=== PATIENT | male | born 1950 | race Caucasian/White ===

== ENCOUNTER 2018-02-11 13:13 | Emergency (ER) | payer MEDICARE, OTHER ==
[2018-02-11 14:43] LABS: #Eosinphils 0.1 thou/uL (0.0-0.7); #Lymphocytes 0.7 thou/uL (1.20-3.40); #Monocytes 0.4 thou/uL (0.11-0.59); %Basophils 0.2 % (0.0-1.0); %Eosinophils 1.2 % (0.0-10.0); %Lymphocytes 11.5 % (21.0-51.0); %Neutrophils 80.1 % (42.0-75.0); Hemoglobin 15.8 g/dL (14.0-18.0); Mean Corpuscular HGB CONC 34.3 g/dL (32.0-36.0); Mean Corpuscular Hemoglobin 29.6 pg (27.0-31.0); Mean Corpuscular Volume 86.2 fL (78.0-98.0); Mean Platelet Volume 7.3 fL (7.4-10.4); Platelet Count 92 thou/uL (130-400); RBC Distribution Width 12.2 % (11.5-14.5); Red Blood Cell (RBC) Count 5.35 mill/uL (4.70-6.10); White Blood Cell (WBC) Count 6.2 thou/uL (4.8-10.8)
[2018-02-11 15:03] LABS: ALT (SGPT) 34 U/L (8-55); AST (SGOT) 29 U/L (5-34); Albumin 4.2 g/dL (3.4-4.8); Alkaline Phosphatase 59 U/L (40-150); Anion Gap 15 mmol/L (10-20); BUN (Urea Nitrogen) 9 mg/dL (8.4-25.7); Bilirubin, Total 1.2 mg/dL (0.2-1.2); Calc. Creatinine Clearance 0 mL/min (70-130); Calcium 9.4 mg/dL (7.8-10.44); Carbon Dioxide 24 mmol/L (23-31); Chloride 102 mmol/L (98-107); Estimated GFR-MDRD Greater than 90; Globulin 4.1 g/dL (2.4-3.5); Glucose 201 mg/dL (80-115); Potassium 3.5 mmol/L (3.5-5.1); Protein, Total 8.3 g/dL (5.8-8.1); Sodium 137 mmol/L (136-145)
--- NOTE | 2018-02-11 15:20 | RAD ---
CHEST ONE VIEW: HISTORY: Headaches. Nausea. Vomiting. Chest pain. FINDINGS: Normal cardiac silhouette. The pulmonary vessels and hilum are normal. The costophrenic angles are clear. No consolidation or mass. Chronic changes in the right ribs. No pneumothorax or osseous abn ormalities. IMPRESSION: No acute cardiopulmonary process. POS: [facility]
[2018-02-11] MEDS ORDERED: hydrALAZINE 20 MG/ML VIAL ONE (15:47)
--- NOTE | 2018-02-11 15:51 | CT ---
CT BRAIN NONCONTRAST: 02/11/2018 HISTORY: A 68-year-old male with nausea and emesis with headache. Hypertension. FINDINGS: There is no midline shift or any other mass effect. There is no evidence of acute intracranial hemor rhage, obstructive hydrocephalus, or extraaxial fluid collection. The calvarium is intact. There is diffuse parenchymal volume loss. There are low attenuation areas in the white matter. These are no nspecific, but in a patient of this age, they are probably chronic ischemic white matter changes due to microvascular atherosclerosis. These changes have become much worse, compared to the previous CT of 10/06/2004. There is a moderate-sized region of left temporal encephalomalacia and gliosis, which is new, having occurred some time after the previous CT of 10/06/2004. Again noted is the small, ol d lacunar infarction in the left thalamus. There are additional tiny, old lacunar infarctions in the right basal ganglia and external capsule, new since 10/06/2004. The ventricles are mildly dilated, larger than they were previously, because of diffuse brain parenchymal volume loss that has occurred since then. IMPRESSION: 1) No acute intracranial findings. 2) Involutional changes and moderate-severe chronic ischemic white matter changes. 3) Moderate-sized old insult, either prior hemorrhage/trauma or prior infarction, in the left tempora l lobe. 4) Small/tiny old lacunar infarctions in the left thalamus and right basal ganglia. jn [] POS: [facility]
[2018-02-11] MEDS ORDERED: Metoclopramide HCl 10 MG/2 ML VIAL ONE (16:04)
[2018-02-11] MEDS ORDERED: Ketorolac Tromethamine 30 MG/ML VIAL ONE (16:04)
[2018-02-11] MEDS ORDERED: diphenhydrAMINE 50 MG/ML VIAL ONE (16:04)
== END 2018-02-11 17:15 | disposition home or self-care (01) ==
LOC: ERS 13:13
DX: R51 Headache (principal); I10 Essential (primary) hypertension; E11.9 Type 2 diabetes mellitus without complications; Z79.899 Other long term (current) drug therapy; Z79.84 Long term (current) use of oral hypoglycemic drugs
CPT/HCPCS: 70450; 71045; 80053; 83880; 84484; 85025; 93005; 96374; 96375; J0360; J1200; J1885; J2765

== ENCOUNTER 2018-05-27 07:43 | Outpatient (CLI) | payer MEDICARE ==
--- NOTE | 2018-05-27 09:27 | ULT ---
ULTRASOUND ABDOMEN: HISTORY: Thrombocytopenia. FINDINGS: The liver demonstrates increased echogenicity with focal sparing adjacent to the gallbladder. No mas s or intrahepatic ductal dilatation is seen. The spleen is mildly enlarged, measuring 14.2 cm in chantell gth. No gallstones, gallbladder wall thickening, or pericholecystic fluid is seen. The common duct measures 3 mm in diameter. The pancreas is not satisfactorily visualized due to overlying bowel gas. The visualized portions of the aorta and IVC are normal. Both kidneys have a normal appearance. No free fluid is seen in the abdomen. IMPRESSION: 1. Fatty liver. 2. Mild splenomegaly. 3. No evidence of cholelithiasis. POS: [facility]
== END 2018-05-27 07:44 | disposition home or self-care (01) ==
LOC: BICULT 07:43
PROVIDERS: ATTEND Family Medicine
DX: D69.6 Thrombocytopenia, unspecified (principal); K76.0 Fatty (change of) liver, not elsewhere classified; R16.1 Splenomegaly, not elsewhere classified
CPT/HCPCS: 76700

== ENCOUNTER 2018-08-08 10:41 | Emergency (ER) | payer MEDICARE ==
[2018-08-08 11:27] LABS: INR-International Normal Ratio 1.1; Prothrombin Time 14.5 SEC (12.0-14.7)
[2018-08-08 11:28] LABS: PTT 33.6 SEC (22.9-36.1)
[2018-08-08 11:33] LABS: Acetaminophen Less than 6.0 mcg/mL (10.0-30.0); Alcohol Less than 10 mg/dL (Less than 10); Salicylate Less than 8.0 mg/dL (15.0-30.0)
[2018-08-08 11:35] LABS: ALT (SGPT) 27 U/L (8-55); AST (SGOT) 27 U/L (5-34); Alkaline Phosphatase 59 U/L (40-150); Anion Gap 12 mmol/L (10-20); BUN (Urea Nitrogen) 12 mg/dL (8.4-25.7); Bilirubin, Total 0.7 mg/dL (0.2-1.2); Calc. Creatinine Clearance 0 mL/min (70-130); Calcium 9.8 mg/dL (7.8-10.44); Carbon Dioxide 25 mmol/L (23-31); Chloride 104 mmol/L (98-107); Estimated GFR-MDRD Greater than 90; Globulin 3.6 g/dL (2.4-3.5); Glucose 252 mg/dL (80-115); Protein, Total 7.6 g/dL (5.8-8.1); Sodium 137 mmol/L (136-145)
[2018-08-08 11:38] LABS: #Eosinphils 0.1 thou/uL (0.0-0.7); #Monocytes 0.5 thou/uL (0.11-0.59); #Neutrophils 3.6 thou/uL (1.40-6.50); %Basophils 0.8 % (0.0-1.0); %Eosinophils 1.9 % (0.0-10.0); %Lymphocytes 31.7 % (21.0-51.0); %Monocytes 7.8 % (0.0-10.0); %Neutrophils 57.8 % (42.0-75.0); Mean Corpuscular Hemoglobin 29.9 pg (27.0-31.0); Mean Corpuscular Volume 85.6 fL (78.0-98.0); Platelet Count 106 thou/uL (130-400); RBC Distribution Width 11.8 % (11.5-14.5); Red Blood Cell (RBC) Count 5.03 mill/uL (4.70-6.10); White Blood Cell (WBC) Count 6.2 thou/uL (4.8-10.8)
--- NOTE | 2018-08-08 11:39 | CT ---
Exam: Head CT without contrast HISTORY: Confusion. Recent memory loss. COMPARISON: 02/11/2018 FINDINGS: Hemorrhage: No intraparenchymal hemorrhage or extra-axial hematoma. Brain parenchyma: Age-appropriate atrophy. Stable white matter hypodensities due to chronic small ves tomi ischemic change. Remote lacunar infarct involving bilateral caudate nuclei, left thalamus. Stable malacic change involving the lateral left temporal lobe. Confluent white matter hypodensities due to chronic small vessel ischemic change. Ventricular system: Ventricles and sulci are patent and symmetric. Calvarium: Intact. Sinuses and mastoid air cells: Adequate aeration. IMPRESSION: 1. No acute intracranial process. 2. Age-appropriate atrophy 3. Remote lacunar infarcts in the deep mauricio matter structures 4. Chronic small vessel ischemic changes of the white matter 5. Stable malacic change in the left temporal lobe.
[2018-08-08 12:24] LABS: Bilirubin Negative (Negative); Blood, Urine Trace (Negative); Clarity Clear (Clear); Glucose, Urine (Dipstick) >=1000 mg/dL (Negative); Leukocyte Negative (Negative); Nitrite Negative (Negative); Protein, Urine (Dipstick) 100 mg/dL (Neg-Trace); Specific Gravity, Urine 1.015 (1.005-1.030); pH, Urine 5.5 (5.0-9.0)
[2018-08-08 12:26] LABS: Bacteria/HPF None Seen HPF (None Seen); Hyaline Casts/LPF 0-3 HYALINE CAST LPF (0-3 Hyaline); Squamous Epithelial 0-3 HPF (0-3); WBC/HPF 0-3 HPF (0-3)
[2018-08-08 12:35] LABS: Amphetamine Not Detected (NotDetected); Barbiturates Screen Not Detected (NotDetected); Benzodiazepine Screen Not Detected (NotDetected); Cocaine Metabolite Screen Not Detected (NotDetected); Medtox Control Line Valid? VALID (VALID); Methadone Not Detected (NotDetected); Methamphetamine Not Detected (NotDetected); Opiate Screen Not Detected (NotDetected); Oxycodone Screen Not Detected (NotDetected); Phencyclidine (PCP) Not Detected (NotDetected); THC/Cannabinoid Screen Not Detected (NotDetected); Tricyclic Screen Not Detected (NotDetected)
== END 2018-08-08 13:05 | disposition home or self-care (01) ==
LOC: SCSER 10:41
DX: R41.0 Disorientation, unspecified (principal); E11.9 Type 2 diabetes mellitus without complications; I10 Essential (primary) hypertension; Z79.82 Long term (current) use of aspirin; Z79.84 Long term (current) use of oral hypoglycemic drugs
CPT/HCPCS: 70450; 80053; 80306; 80307; 81003; 81015; 84443; 85025; 85610; 85730; 93005

== ENCOUNTER 2018-09-25 13:40 | Outpatient (CLI) | payer MEDICARE ==
--- NOTE | 2018-09-25 16:31 | ULT ---
Carotid duplex sonogram HISTORY: Left cerebral artery occlusion. CVA. FINDINGS: Right: Scattered plaque. Color and spectral Doppler evaluation, peak systolic velocity of 48 cm/s, an d IC to CC ratio 0.5 suggest no hemodynamically significant stenosis within the extra cranial right ICA. Right vertebral artery not well visualized. Left: Scattered areas of plaque. Color and spectral Doppler evaluation, peak systolic velocity of 55 cm/s, and IC to CC ratio 0.6 suggest no hemodynamically significant stenosis extracranial left ICA. Antegrade flow within the vertebral artery. IMPRESSION: Atherosclerosis. No sonographic evidence of significant extracranial ICA stenosis.
== END 2018-09-25 13:41 | disposition home or self-care (01) ==
LOC: SCSULT 13:40
PROVIDERS: ATTEND Psychiatry & Neurology Neurology
DX: I66.02 Occlusion and stenosis of left middle cerebral artery (principal); I70.90 Unspecified atherosclerosis
CPT/HCPCS: 93880

== ENCOUNTER 2018-11-29 11:55 | Outpatient (CLI) | payer MEDICARE ==
--- NOTE | 2018-11-29 14:06 | RAD ---
3 VIEWS LEFT FOOT: Date: 11/29/18 COMPARISON: None. HISTORY: Diabetes; red, swollen foot. FINDINGS: There is atherosclerotic calcification overlying the midfoot. No acute fracture or dislocation. Lateral examination suggests mild soft tissue swelling involving the plantar and dorsal aspect of the midfoot and forefoot. There is enthesophyte formation at the insertion of the Achilles tendon and or igin of the plantar aponeurosis. No obvious bone destruction. IMPRESSION: Atherosclerotic disease and soft tissue swelling. Question cellulitis. No acute fracture or dislocati on. If there is clinical concern for osteomyelitis, MRI advised. POS: [facility]
== END 2018-11-29 11:56 | disposition home or self-care (01) ==
LOC: SCSRAD 11:55
PROVIDERS: ATTEND Family Medicine
DX: L08.9 Local infection of the skin and subcutaneous tissue, unspecified (principal); I70.90 Unspecified atherosclerosis; M79.89 Other specified soft tissue disorders

== ENCOUNTER 2018-12-09 09:26 | Outpatient (CLI) | payer MEDICARE ==
[~2018-12-09 09:26] MED LIST: Sodium Chloride 0.9% 15 ML NEB ONE
--- NOTE | 2018-12-09 14:15 | HP ---
HISTORY OF PRESENT ILLNESS: Mr. Yannick Schroeder is a very pleasant 68-year-old gentleman, accompanied by his spouse, who presents [facility] for evaluation of an ulceration of the left medial great toe. The patient's states that approximately 2 weeks ago, she noted significant erythema of the left great toe after taking off her 's socks. The patient was seen shortly thereafter by Dr. Augustine, and the patient has been taking dicloxacillin and levofloxacin as prescribed with significant improvement in the appearance of the left great toe. The patient was referred to the Wound Center by Dr. Augustine on 12/02/2018. For the wound, the patient has been receiving dressing changes of Bactroban and gauze with the assistance of his . PAST MEDICAL HISTORY: 1. History of closed head injury. 2. Diabetes mellitus. 3. Hypertension. 4. TIA. PAST SURGICAL HISTORY: Negative. MEDICATIONS: 1. Dicloxacillin. 2. Levofloxacin. 3. Metformin. 4. Glipizide. 5. Aspirin. 6. Aricept. 7. Lisinopril. 8. Rosuvastatin. ALLERGIES: NO KNOWN DIAGNOSED ALLERGY. SOCIAL HISTORY: Social history is significant for tobacco use of 2 packs of cigarettes per day for 20 years. The patient apparently stopped smoking 35 years ago. The patient admits to the heavy consumption of alcohol in the past. He states that he stopped consuming alcohol 40 years ago. FAMILY HISTORY: Family history is significant for diabetes mellitus. The patient states that he has one relative on the maternal side of his family, who was diagnosed with diabetes mellitus. Family history is also significant for coronary artery disease. The patient states that his mother was diagnosed with coronary artery disease. PHYSICAL EXAMINATION: VITAL SIGNS: Temperature 98.8, pulse 63, respirations 16, and blood pressure 170/86. Accu-Chek 134. GENERAL: A 68-year-old gentleman, lying on stretcher in examination room, in no acute distress. HEENT: Normocephalic and atraumatic. NECK: No nuchal rigidity. CHEST: Clear to auscultation. CV: Regular rate and rhythm. ABDOMEN: Soft. EXTREMITIES: An ulceration over the left medial great toe is present, which measures approximately 1.0 x 0.9 cm. Granulation tissue is present within the wound margins. Nonviable tissue present within the wound margins is debrided with an excisional full-thickness debridement. No purulent drainage is associated with the wound. Resolving erythema of the left great toe is present. No maceration of the skin of the periwound is noted. A faintly palpable dorsalis pedis and posterior tibial pulse are palpable on the left, and easily palpable dorsalis pedis and posterior tibial pulse are palpable on the right. No significant edema of the left great toe is present on exam today. ASSESSMENT AND PLAN: 1. Ulceration of left medial great toe as described above. Dressing changes of Bactroban and gauze will be continued on a daily basis after cleansing and irrigation with the assistance of the patient's . The patient is to continue dicloxacillin and Levaquin as previously prescribed. I will discuss the treatment plan with Dr. Augustine. I will see Mr. Schroeder again in 2 weeks. The patient and his understand and are in agreement with the preceding treatment plan. 2. History of closed head injury. 3. Diabetes mellitus. The patient's Accu-Chek in clinic today is 134. The patient has been told that for optimal wound healing, the blood glucoses should remain below 150. 4. Hypertension. 5. Transient ischemic attack. Job ID: [id number]
== END 2018-12-09 09:27 | disposition home or self-care (01) ==
LOC: WCC 09:26
PROVIDERS: ATTEND Family Medicine
DX: E11.621 Type 2 diabetes mellitus with foot ulcer (principal); L97.529 Non-pressure chronic ulcer of other part of left foot with unspecified severity; G45.9 Transient cerebral ischemic attack, unspecified
CPT/HCPCS: 36416; A4218

== ENCOUNTER 2018-12-23 10:34 | Outpatient (CLI) | payer MEDICARE ==
--- NOTE | 2018-12-23 10:55 | PRG ---
DATE OF SERVICE: 12/23/2018 HISTORY: Mr. Yannick Schroeder is a very pleasant 68-year-old gentleman, accompanied by his spouse, who presents to the [facility] for evaluation of an ulceration of the left medial great toe. The patient's previously stated that approximately 2 weeks prior to the patient's initial presentation to the Wound Center, she noted significant erythema of the left great toe after taking off her sock. The patient was seen shortly thereafter by Dr. Augustine and the patient was placed on dicloxacillin and levofloxacin with significant improvement in the appearance of the left great toe. The patient was referred to the Wound Center by Dr. Augustine on 12/02/2018. Prior to being seen in the Wound Center, the patient had been receiving dressing changes of Bactroban and gauze with the assistance of his . PHYSICAL EXAMINATION: VITAL SIGNS: Temperature 98.3, pulse 61, respirations 20, blood pressure 189/91. Accu-Chek 113. EXTREMITIES: An ulceration over the left medial great toe is present, which measures approximately 0.8 cm x 0.1 cm. The dimensions of the wound at the time of the patient's last visit were approximately 1.0 cm x 0.9 cm. Nonviable tissue associated with the wound was debrided with an excisional partial thickness debridement with the use of scissors. No serous or purulent drainage is associated with the wound. No maceration of the skin of the periwound is noted. A dorsalis pedis pulse is palpable on the left. No significant edema of the left great toe is present on exam today. ASSESSMENT AND PLAN: 1. Ulceration of left medial great toe as described above. Dressing changes of Bactroban and gauze will be continued on a daily basis after cleansing and irrigation with the assistance of the patient's . The wound has almost healed completely and Mr. Schroeder will be discharged from clinic today with followup on a p.r.n. basis. The patient has a followup appointment with Dr. Augustine next month. The patient has been recommended to obtain diabetic shoes with inserts. The patient and his understand and are in agreement with the preceding treatment plan. 2. History of closed head injury. 3. Diabetes mellitus. The patient's Accu-Chek in clinic today is 113. The patient has been reminded that for optimal wound healing, his blood glucoses should remain below 150. 4. Hypertension. 5. Transient ischemic attack. Job ID: [id number]
== END 2018-12-23 10:35 | disposition home or self-care (01) ==
LOC: WCC 10:34
PROVIDERS: ATTEND Family Medicine
DX: E11.621 Type 2 diabetes mellitus with foot ulcer (principal); L97.529 Non-pressure chronic ulcer of other part of left foot with unspecified severity; I10 Essential (primary) hypertension; G45.9 Transient cerebral ischemic attack, unspecified; Z87.828 Personal history of other (healed) physical injury and trauma
CPT/HCPCS: A4218